=== PATIENT | female | born 1985 | race Caucasian/White ===

== ENCOUNTER → 2016-05-26 | Outpatient (CLI) | payer MEDICARE ==
[~2016-05-26] MED LIST: /CARB4TA OR; /DULO30CA OR; /LAMO10TA PO; /OLAN5ZYD OR; /ZOLP6ER OR; ABIL10TA OR; ABIL2TAB OR; ABIL5TAB OR; AMBI10TA OR; AMBI12.52 PO; AMBIEN OR; ATIV1TAB2 OR; BUSP10TA PO; CARB PO; CARB10TAXR OR; CARBAMAZEPINE 600 MG PO; CIPR500T89 PO; COLA50CA3 PO; CYMB60CA3 PO; DULOXETINE PO; HYDR-3363 PO; KLON1TAB OR; KLON1TAB PO; KLON2TAB PO; LATU40TA PO; LORA1TAB OR; NEUR300C OR; NEUR600T OR; NICO21DI4 TD; PERC7.5T12 PO; TEGR100C OR; TEGR200T OR; TEGR200T PO; TRAZ100T OR; TRAZ100T2 PO; TRAZ50TA2 PO; WELL75TA OR; ZYPR5TAB2 PO; [UNRECOGNIZED DRUG - CODE]; [UNRECOGNIZED DRUG - CODE] PO; [UNRECOGNIZED DRUG - OTHER] PO; rozerem PO
--- NOTE | 2016-05-26 18:17 | REP ---
Clinical: Shortness of breath. Technique: PA and lateral. Comparison: 11/13/2012. Findings: Calcified hilar lymph nodes and pulmonary granulomas are identified consistent with prior granulomatous disease. No obvious acute consolidation, effusion, or pneumothorax. Cardiac silhouette is normal. Skeletal structures intact. Impression: Prior granulomatous disease. No obvious acute cardiopulmonary process. Signed by Douglas Morales MD 05/26/2016 06:08 P
[2016-05-26 20:23] LABS: BASO % 0.5 % (0.0-1.0); EOS # 0.1 K/mm3 (0.0-0.50); EOS % 0.9 % (0.0-3.0); LARGE UNSTAINED CELL # 0.1 K/mm3 (0.0-0.4); LARGE UNSTAINED CELL % 2.2 % (0.0-4.0); LYMPH # 1.8 K/mm3 (1.5-4.5); LYMPH % 27.9 % (24.0-44.0); MEAN CORPUSCULAR HEMOGLOBIN 31.3 pg (27.0-33.0); MEAN CORPUSCULAR HGB CONC 32.4 g/dl (32.0-36.5); MEAN CORPUSCULAR VOLUME 96.5 fl (80.0-96.0); MONO # 0.3 K/mm3 (0.0-0.8); MONO % 4.4 % (0.0-5.0); NEUTROPHILS # 4.1 K/mm3 (1.8-7.7); NEUTROPHILS % 64.2 % (36.0-66.0); PLATELET COUNT, AUTOMATED 280 k/mm3 (150-450); RED CELL DISTRIBUTION WIDTH 11.6 % (11.5-14.5)
[2016-05-26 20:27] LABS: ALBUMIN 4.2 GM/DL (3.2-5.2); ALBUMIN/GLOBULIN RATIO 1.45 (1.00-1.93); ALKALINE PHOSPHATASE 74 U/L (45-117); ALT/SGPT 23 U/L (12-78); ANION GAP 7 MEQ/L (8-16); AST/SGOT 10 U/L (15-37); BILIRUBIN,TOTAL 0.3 MG/DL (0.2-1.0); BLOOD UREA NITROGEN 14 MG/DL (7-18); CALCIUM LEVEL 9.1 MG/DL (8.5-10.1); CARBON DIOXIDE LEVEL 29 MEQ/L (21-32); CHLORIDE LEVEL 104 MEQ/L (98-107); CREATININE FOR GFR 0.76 MG/DL (0.55-1.02); GLOMERULAR FILTRATION RATE > 60.0 (>60); POTASSIUM SERUM 4.4 MEQ/L (3.5-5.1); SODIUM LEVEL 140 MEQ/L (136-145); TOTAL PROTEIN 7.1 GM/DL (6.4-8.2)
[2016-05-26 20:52] LABS: ERYTHROCYTE SEDIMENTATION RATE 4 mm/hr (0-20)
[2016-05-27 08:33] LABS: GLUCOSE, FASTING 93 MG/DL (70-105); WHITE BLOOD COUNT 6.4 K/mm3 (4.0-10.0)
== END ==
LOC: M WUC 17:39
PROVIDERS: ATTEND Physician Assistant
DX: R06.02 Shortness of breath (principal); M25.50 Pain in unspecified joint

== ENCOUNTER → 2017-05-30 | Outpatient (REF) | payer MEDICARE ==
[2017-05-30 14:05] LABS: BASO % 0.4 % (0.0-1.0); EOS % 0.8 % (0.0-3.0); HEMATOCRIT 36.6 % (36.0-47.0); HEMOGLOBIN 11.8 g/dl (12.0-16.0); IMMATURE GRANULOCYTE % 0.2 % (0-0); LYMPH # 1.9 10^3/uL (1.5-4.5); LYMPH % 37.2 % (24.0-44.0); MEAN CORPUSCULAR HEMOGLOBIN 29.9 pg (27.0-33.0); MEAN CORPUSCULAR HGB CONC 32.2 g/dl (32.0-36.5); MEAN CORPUSCULAR VOLUME 92.7 fl (80.0-96.0); MONO # 0.3 10^3/uL (0.0-0.8); MONO % 6.7 % (0.0-5.0); NEUTROPHILS # 2.8 10^3/uL (1.8-7.7); NEUTROPHILS % 54.7 % (36.0-66.0); PLATELET COUNT, AUTOMATED 311 10^3/uL (150-450); RED BLOOD COUNT 3.95 10^6/uL (4.00-5.40); RED CELL DISTRIBUTION WIDTH 12.9 % (11.5-14.5); WHITE BLOOD COUNT 5.1 10^3/uL (4.0-10.0)
[2017-05-30 14:24] LABS: CARBAMAZEPINE (TEGRETOL) LEVEL 3.9 UG/ML (4.0-10.0)
== END ==
LOC: M LABDRAW1 11:52
DX: Z51.81 Encounter for therapeutic drug level monitoring (principal); Z79.899 Other long term (current) drug therapy
CPT/HCPCS: 80156

== ENCOUNTER → 2018-03-21 | Outpatient (REF) | payer MEDICARE ==
[2018-03-21 13:54] LABS: BASO % 0.5 % (0.0-1.0); EOS # 0.3 10^3/uL (0.0-0.50); EOS % 3.2 % (0.0-3.0); HEMATOCRIT 42.2 % (36.0-47.0); HEMOGLOBIN 13.2 g/dl (12.0-15.5); IMMATURE GRANULOCYTE % 0.3 % (0-3.0); LYMPH # 1.4 10^3/uL (1.5-4.5); LYMPH % 18.5 % (24.0-44.0); MEAN CORPUSCULAR HEMOGLOBIN 30.1 pg (27.0-33.0); MEAN CORPUSCULAR HGB CONC 31.3 g/dl (32.0-36.5); MEAN CORPUSCULAR VOLUME 96.3 fl (80.0-96.0); MONO # 0.5 10^3/uL (0.0-0.8); MONO % 6.6 % (0.0-5.0); NEUTROPHILS # 5.5 10^3/uL (1.8-7.7); NEUTROPHILS % 70.9 % (36.0-66.0); PLATELET COUNT, AUTOMATED 277 10^3/uL (150-450); RED BLOOD COUNT 4.38 10^6/uL (4.00-5.40); WHITE BLOOD COUNT 7.7 10^3/uL (4.0-10.0)
[2018-03-21 14:04] LABS: ALBUMIN 3.5 GM/DL (3.2-5.2); ALBUMIN/GLOBULIN RATIO 1.13 (1.00-1.93); ALKALINE PHOSPHATASE 124 U/L (45-117); ALT/SGPT 24 U/L (12-78); AST/SGOT 15 U/L (7-37); BILIRUBIN,DIRECT < 0.1 MG/DL (0.0-0.2); BILIRUBIN,TOTAL 0.2 MG/DL (0.2-1.0); CARBAMAZEPINE (TEGRETOL) LEVEL 3.6 UG/ML (4.0-10.0); TOTAL PROTEIN 6.6 GM/DL (6.4-8.2)
== END ==
LOC: M LABDRAW1 12:42
DX: Z51.81 Encounter for therapeutic drug level monitoring (principal); Z79.899 Other long term (current) drug therapy
CPT/HCPCS: 80156

== ENCOUNTER 2018-05-30 07:59 | Emergency (ER) | payer MEDICARE ==
[2018-05-30] MEDS ORDERED: ACETAMINOPHEN 325 MG TAB PO ONE (08:45)
[2018-05-30] MEDS ORDERED: NS 1,000 ML IV ONE (08:45)
[2018-05-30 09:46] LABS: HEMATOCRIT 45.2 % (36.0-47.0); MEAN CORPUSCULAR HEMOGLOBIN 31.3 pg (27.0-33.0); MEAN CORPUSCULAR HGB CONC 33.2 g/dl (32.0-36.5); MEAN CORPUSCULAR VOLUME 94.4 fl (80.0-96.0); PLATELET COUNT, AUTOMATED 317 10^3/uL (150-450); RED BLOOD COUNT 4.79 10^6/uL (4.00-5.40); WHITE BLOOD COUNT 8.3 10^3/uL (4.0-10.0)
[2018-05-30 09:47] VITALS: BP 125/96
[2018-05-30 10:08] LABS: AMPHETAMINES LEVEL URINE NEGATIVE (NEGATIVE); BARBITURATES URINE NEGATIVE (NEGATIVE); BENZODIAZEPINES URINE NEGATIVE (NEGATIVE); CANNABINOIDS URINE POSITIVE (NEGATIVE); COCAINE METABOLITE URINE POSITIVE (NEGATIVE); METHADONE URINE NEGATIVE (NEGATIVE); OPIATES URINE NEGATIVE (NEGATIVE); PHENCYCLIDINE URINE NEGATIVE (NEGATIVE)
[2018-05-30 10:13] LABS: HCG, SERUM QUALITATIVE NEGATIVE (NEGATIVE)
[2018-05-30 10:30] LABS: ACETAMINOPHEN LEVEL < 2.0 UG/ML (10.0-30.0); ALBUMIN 4.1 GM/DL (3.2-5.2); ALT/SGPT 43 U/L (12-78); BILIRUBIN,DIRECT < 0.1 MG/DL (0.0-0.2); BILIRUBIN,TOTAL 0.2 MG/DL (0.2-1.0); BLOOD UREA NITROGEN 7 MG/DL (7-18); CALCIUM LEVEL 8.6 MG/DL (8.5-10.1); CARBON DIOXIDE LEVEL 26 MEQ/L (21-32); CHLORIDE LEVEL 105 MEQ/L (98-107); CPK CREATINE PHOSPHOKINASE 1269 U/L (26-192); CREATININE FOR GFR 0.75 MG/DL (0.55-1.30); ETHYL ALCOHOL (ETHANOL) 0.252 % (0.000-0.010); GLOMERULAR FILTRATION RATE > 60.0 (>60); GLUCOSE, FASTING 106 MG/DL (70-100); POTASSIUM SERUM 3.6 MEQ/L (3.5-5.1); SALICYLATE LEVEL 1.8 MG/DL (5.0-30.0); SODIUM LEVEL 141 MEQ/L (136-145); TOTAL PROTEIN 7.3 GM/DL (6.4-8.2)
[2018-05-30] MEDS ORDERED: NICO21DI34 TD (17:10)
[2018-05-30] MEDS ORDERED: HYDR-3363 PO (17:10)
[2018-05-30] MEDS ORDERED: VITMTA PO (17:10)
[2018-05-30] MEDS ORDERED: TRAZ-163 PO (17:10)
[2018-05-30] MEDS ORDERED: DULO1CAP3 PO (17:10)
[2018-05-30] MEDS ORDERED: BUSP30TA PO (17:10)
[2018-05-30] MEDS ORDERED: DULO1CAP2 PO (17:10)
[2018-05-30] MEDS ORDERED: LAMO25TA4 PO (17:10)
[2018-05-30] MEDS ORDERED: CARB400T4 PO (17:10)
== END 2018-05-30 10:23 | disposition left against medical advice (07) ==
LOC: M ED 07:59
DX: F19.10 Other psychoactive substance abuse, uncomplicated (principal)
CPT/HCPCS: 80048; 80076; 80307; 82550; 84443; 84703; 85027; 96360; 99283; G0480

== ENCOUNTER 2018-05-30 13:33 | Inpatient (IN) | payer MEDICARE ==
[~2018-05-30] VITALS: Ht 170.2 cm; Wt 60.2 kg
[2018-05-30 14:42] LABS: AMPHETAMINES LEVEL URINE NEGATIVE (NEGATIVE); BARBITURATES URINE NEGATIVE (NEGATIVE); BENZODIAZEPINES URINE NEGATIVE (NEGATIVE); CANNABINOIDS URINE NEGATIVE (NEGATIVE); COCAINE METABOLITE URINE POSITIVE (NEGATIVE); METHADONE URINE NEGATIVE (NEGATIVE); OPIATES URINE NEGATIVE (NEGATIVE); PHENCYCLIDINE URINE NEGATIVE (NEGATIVE)
[2018-05-30] MEDS ORDERED: NS 1,000 ML IV ONE (15:00)
[2018-05-30 15:37] LABS: ACETAMINOPHEN LEVEL < 2.0 UG/ML (10.0-30.0); CPK CREATINE PHOSPHOKINASE 1052 U/L (26-192); ETHYL ALCOHOL (ETHANOL) 0.203 % (0.000-0.010); HEPATITIS B SURFACE ANTIGEN NEGATIVE (NEGATIVE); SALICYLATE LEVEL < 1.7 MG/DL (5.0-30.0)
[2018-05-30 15:59] LABS: HEPATITIS B CORE ANTIBODY IGM NEGATIVE (NEGATIVE); HEPATITIS C VIRUS ABY INDEX 0.1 INDEX (<0.8)
[2018-05-30 16:01] LABS: HIV 1&2 SCREEN CENTAUR NEGATIVE (NEGATIVE)
[2018-05-30 16:02] LABS: HEPATITIS A ANTIBODY IGM NEGATIVE (NEGATIVE)
[2018-05-30] MEDS ORDERED: NICOTINE 21MG/24HR 1 EA TRANSDERMAL TD ONE (17:00)
[2018-05-30] MEDS ORDERED: BUSP30TA PO (17:10)
[2018-05-30] MEDS ORDERED: CARB400T4 PO (17:10)
[2018-05-30] MEDS ORDERED: DULO1CAP3 PO (17:10)
[2018-05-30] MEDS ORDERED: LAMO25TA4 PO (17:10)
[2018-05-30] MEDS ORDERED: VITMTA PO (17:10)
[2018-05-30] MEDS ORDERED: DULO1CAP2 PO (17:10)
[2018-05-30] MEDS ORDERED: NICO21DI34 TD (17:10)
[2018-05-30] MEDS ORDERED: TRAZ-163 PO (17:10)
[2018-05-30] MEDS ORDERED: HYDR-3363 PO (17:10)
[2018-05-30] MEDS ORDERED: MAALOX 30 ML SUSP *UDC PO PRN (17:45)
[2018-05-30] MEDS: LORazepam 2 MG TAB PO PRN (18:42)
[2018-05-30 20:02] VITALS: BP 146/100
[2018-05-30 20:21] VITALS: BP 146/100
[2018-05-30] MEDS: OLANZapine ORAL DISINTEGRATING TAB 5MG PO PRN (20:40)
[2018-05-30] MEDS: traZODone 50 MG TAB PO PRN (20:40)
[2018-05-30] MEDS: THIAMINE 100 MG TAB PO SCH (20:40)
[2018-05-30 21:57] VITALS: BP 145/92
[2018-05-31 06:22] VITALS: BP 136/87
[2018-05-31] MEDS: MULTIVITAMINS/MINERALS THERAP 1 TAB PO SCH (08:54)
[2018-05-31] MEDS: THIAMINE 100 MG TAB PO SCH ×2 (08:54→20:20)
[2018-05-31] MEDS: NICOTINE 21MG/24HR 1 EA TRANSDERMAL TD SCH (08:54)
[2018-05-31] MEDS: FOLIC ACID 1 MG TAB PO SCH (08:54)
--- NOTE | 2018-05-31 09:26 | HPEPDOC ---
[facility] Medical History & Physical Date of Admission May 30, 2018 History and Physical PCP: None ATTENDING: Dr. Vladislav Cash HPI: 32 yo F admitted to [facility] for bipolar disorder, being medically examined today. No acute medical complaints today. Patient states she takes Lamictal and carbamazepine for mood. The patient noted she has a bruise on her left buttock. Denies any fevers, chills, weakness, fatigue, RANDALL, CP, SOB, cough, palpitations, abdominal pain, N/V/D or changes in bowel or bladder habits. PMHx: Anxiety Depression Bipolar disorder History of SI/SA, overdose. Substance use Insomnia History of seizure related to previous overdose 2014, patient denies any seizure activity since then. GERD PSHX: Right carpal tunnel release SOCHX: Resides in: [facility] Marital Status: Kids: None Employment: Disabled Tobacco use: One pack per day ETOH: States consuming alcohol prior to admission "all day", estimates over 10 drinks. States has been drinking daily recently. Illicit Drugs: History of cocaine, states has used other substances "you name it, I have used it". IV Drug Use: Approximately 4 years ago Tattoos done unprofessionally: Denies FAMHX: Mother: Alive, thyroid disease Father: Alive, well Siblings: One brother Alive, well Children: None Unexpected deaths due to medical reasons: None. ROS: As noted in HPI, otherwise 11pt ROS of systems reviewed and remarkable only for LMP 3 weeks ago per patient PE: GEN: 32 yo F, appears stated age. Appears disheveled, unkept. No acute distress. Alert and oriented x 3. HEENT: Normocephalic, atraumatic. Pupils are equal, round, and reactive to light. Extraocular movements are intact. No nystagmus appreciated. Sclera are nonicteric. Conjunctiva without injection. Nose midline. Nasal turbinates without bogginess. EACs both patent BL. TMs both visualized and vicente with good cone of light, no bulging or erythema. No facial asymmetry. Moist mucous membranes. Dentition fair. Pharynx pink and moist, no cobblestoning. Neck supple, trachea midline. No lymphadenopathy or thyromegaly appreciated. CHEST: Regular rate and rhythm, +S1, +S2 LUNGS: Clear to auscultation bilaterally. No wheezes, rales, or rhonchi. Breathing appears symmetric and easy. Patient is speaking in full sentences. No accessory muscle use. ABD: Round, soft, non-tender, non-distended. +Bowel sounds throughout. No rebound or guarding. No costovertebral angle tenderness. EXT: Pulses 2+ bilaterally dorsalis pedis and radial. No lower extremity edema appreciated. SKIN: Crowley, dry, warm. Capillary refill <2sec. No rashes. The patient is noted to have an erythematous area at the right buttock which appears to be related to abrasion, there is a small area of skin break approximately dime sized. No drainage. It appears to be healing. NEURO: Alert and oriented x 3. Cranial nerves III-XII are intact. No focal deficits appreciated. EKG: Pending A&P: 32 yo F admitted to [facility] for bipolar disorder 1. Psych. Plan per Psychiatry. Obtain baseline EKG to assure the safety of psychiatric medications as they can prolong the QT interval. 2. Nicotine dependence. Patch available. 3. Elevated CK. Trending downward. Recheck CK in a.m. Recheck BMP in a.m. 4. Follow up. No Primary Care Provider. Will attempt to establish PCP on discharge. 5. Substance use. Management per psychiatry. Continue with MVI, Thiamine, and F olic Acid supplementation. 6. Elevated AST. Possibly related to alcohol use. Recheck CMP in a.m. Check hepatitis profile. 7. History of IVDU. Patient declines HIV screening. 8. Staff member Jane GONZALEZ present throughout exam. Vital Signs Vital Signs Date Time Temp Pulse Resp B/P (MAP) Pulse Ox O2 Delivery O2 Flow Rate FiO2 05/31/18 06:22 73 136/87 05/31/18 06:22 97.6 14 05/30/18 20:02 99 Room Air Laboratory Data Labs 24H Laboratory Tests 2 05/30/18 14:15: Total Creatine Kinase 1052H, Salicylates Level < 1.7L, Urine Amphetamines Screen NEGATIVE, Urine Benzodiazepines Screen NEGATIVE, Urine Opiates Screen NEGATIVE, Urine Methadone Screen NEGATIVE, Acetaminophen Level < 2.0L, Urine Barbiturates Screen NEGATIVE, Urine Phencyclidine Screen NEGATIVE, Urine Cocaine Metabolite Screen POSITIVEH, Urine Cannabinoids Screen NEGATIVE, Ethyl Alcohol Level 0.203H, Hepatitis A IgM Antibody NEGATIVE, Hepatitis B Surface Antigen NEGATIVE, Hepatitis B Core IgM Antibody NEGATIVE, Hepatitis C Antibody Index 0.1, HIV Antigen/Antibody Combo Qual NEGATIVE Home Medications Scheduled Buspirone HCl (Buspirone HCl) 30 Mg Tab, 30 MG PO BID Carbamazepine (Carbamazepine ER) 400 Mg Tab, 400 MG PO QHS Duloxetine Hcl (Duloxetine HCl) 30 Mg Cap, 30 MG PO DAILY TO TOTAL 90MG Duloxetine Hcl (Duloxetine HCl) 60 Mg Cap, 60 MG PO DAILY TO TOTAL 90MG Lamotrigine (Lamotrigine) 25 Mg Tab, 75 MG PO BID Multivitamins *[facility] STOCKED* (Thera M Plus *[facility] STOCKED*) 1 Tab Tab, 1 TAB PO DAILY Nicotine (Nicotine Step 1) 21 Mg/24 Hr Dis, 21 MG TD DAILY Scheduled PRN Hydroxyzine HCl (Hydroxyzine HCl) 25 Mg Tab, 25 MG PO TID PRN for ANXIETY/AGITATION Trazodone HCl (Trazodone HCl) 100 Mg Tab, 150 MG PO QHS PRN for SLEEP Allergies Coded Allergies: No Known Drug Allergy (Verified Allergy, Unknown, 05/30/18) Roselia Calzada May 31, 2018 09:26
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
[2018-05-31] MEDS: lamoTRIgine 25 MG TAB PO SCH ×2 (11:51→20:20)
[2018-05-31] MEDS: busPIRone 5 MG TAB PO SCH ×3 (11:52→20:20)
[2018-05-31] MEDS: DULoxetine 30 MG CAP (CYMBALTA) PO SCH (11:52)
[2018-05-31] MEDS: carBAMazepine 100 MG *1/2* TAB PO SCH (13:18)
[2018-05-31] MEDS: OLANZapine ORAL DISINTEGRATING TAB 5MG PO PRN ×2 (13:19→20:21)
[2018-05-31 13:25] VITALS: BP 136/91
[2018-05-31 18:00] VITALS: BP 114/81
[2018-05-31 18:30] VITALS: BP 140/100
[2018-05-31] MEDS: LORazepam 2 MG TAB PO PRN (18:34)
[2018-05-31] MEDS: traZODone 50 MG TAB PO PRN (20:20)
--- NOTE | 2018-05-31 20:52 | ECGEPIP ---
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
[2018-06-01 06:24] VITALS: BP 118/66
[2018-06-01] MEDS: THIAMINE 100 MG TAB PO SCH ×2 (08:41→20:16)
[2018-06-01] MEDS: busPIRone 5 MG TAB PO SCH ×3 (08:41→20:16)
[2018-06-01] MEDS: FOLIC ACID 1 MG TAB PO SCH (08:41)
[2018-06-01] MEDS: carBAMazepine 100 MG *1/2* TAB PO SCH (08:41)
[2018-06-01] MEDS: DULoxetine 30 MG CAP (CYMBALTA) PO SCH (08:41)
[2018-06-01] MEDS: lamoTRIgine 25 MG TAB PO SCH ×2 (08:41→20:16)
[2018-06-01] MEDS: MULTIVITAMINS/MINERALS THERAP 1 TAB PO SCH (08:41)
[2018-06-01] MEDS: OLANZapine ORAL DISINTEGRATING TAB 5MG PO PRN ×3 (08:41→20:16)
[2018-06-01] MEDS: NICOTINE 21MG/24HR 1 EA TRANSDERMAL TD SCH (08:42)
[2018-06-01 08:54] LABS: ALT/SGPT 24 U/L (12-78); BILIRUBIN,TOTAL 0.3 MG/DL (0.2-1.0); BLOOD UREA NITROGEN 11 MG/DL (7-18); CALCIUM LEVEL 8.5 MG/DL (8.5-10.1); CARBON DIOXIDE LEVEL 24 MEQ/L (21-32); CHLORIDE LEVEL 107 MEQ/L (98-107); CPK CREATINE PHOSPHOKINASE 229 U/L (26-192); CREATININE FOR GFR 0.64 MG/DL (0.55-1.30); GLOMERULAR FILTRATION RATE > 60.0 (>60); GLUCOSE, FASTING 81 MG/DL (70-100); POTASSIUM SERUM 4.1 MEQ/L (3.5-5.1); SODIUM LEVEL 140 MEQ/L (136-145); TOTAL PROTEIN 5.4 GM/DL (6.4-8.2)
[2018-06-01 09:58] LABS: BILIRUBIN,DIRECT 0.1 MG/DL (0.0-0.2)
[2018-06-01 10:35] VITALS: BP 124/84
[2018-06-01 10:48] LABS: BASO % 0.4 % (0.0-1.0); EOS # 0.2 10^3/uL (0.0-0.50); EOS % 2.5 % (0.0-3.0); HEMATOCRIT 34.9 % (36.0-47.0); HEMOGLOBIN 12.1 g/dl (12.0-15.5); LYMPH # 1.6 10^3/uL (1.5-4.5); MEAN CORPUSCULAR HEMOGLOBIN 32.3 pg (27.0-33.0); MEAN CORPUSCULAR HGB CONC 34.7 g/dl (32.0-36.5); MEAN CORPUSCULAR VOLUME 93.1 fl (80.0-96.0); MONO # 0.6 10^3/uL (0.0-0.8); MONO % 8.7 % (0.0-5.0); NEUTROPHILS # 4.8 10^3/uL (1.8-7.7); NEUTROPHILS % 66.1 % (36.0-66.0); PLATELET COUNT, AUTOMATED 235 10^3/uL (150-450); RED BLOOD COUNT 3.75 10^6/uL (4.00-5.40); WHITE BLOOD COUNT 7.3 10^3/uL (4.0-10.0)
[2018-06-01] MEDS: ACETAMINOPHEN TAB 650MG DOSE (2X325MG) PO PRN (13:44)
[2018-06-01 13:49] VITALS: BP 139/95
[2018-06-01 18:00] VITALS: BP 131/79
[2018-06-01] MEDS: carBAMazepine 200 MG TAB PO SCH (20:16)
[2018-06-01] MEDS: traZODone 50 MG TAB PO PRN (20:36)
[2018-06-02 06:39] VITALS: BP 128/69
[2018-06-02 08:16] VITALS: BP 128/69
[2018-06-02] MEDS: lamoTRIgine 25 MG TAB PO SCH ×2 (08:34→20:17)
[2018-06-02] MEDS: FOLIC ACID 1 MG TAB PO SCH (08:34)
[2018-06-02] MEDS: DULoxetine 30 MG CAP (CYMBALTA) PO SCH (08:34)
[2018-06-02] MEDS: busPIRone 5 MG TAB PO SCH ×3 (08:34→20:17)
[2018-06-02] MEDS: NICOTINE 21MG/24HR 1 EA TRANSDERMAL TD SCH (08:34)
[2018-06-02] MEDS: MULTIVITAMINS/MINERALS THERAP 1 TAB PO SCH (08:34)
[2018-06-02] MEDS: THIAMINE 100 MG TAB PO SCH (08:34)
[2018-06-02] MEDS: OLANZapine ORAL DISINTEGRATING TAB 5MG PO PRN ×2 (08:35→18:39)
[2018-06-02] MEDS: carBAMazepine 200 MG TAB PO SCH ×2 (08:35→20:16)
[2018-06-02 10:43] VITALS: BP 142/97
[2018-06-02] MEDS: LORazepam 2 MG TAB PO PRN (10:46)
--- NOTE | 2018-06-02 11:47 | MHIPNPDOC ---
[facility] Progress Note Progress Note DATE OF SERVICE: 06/01/18 HISTORY: Chief Complaint I have been drinking and using coke, I'm not suicidal History of Present Illness HISTORY OF THE PRESENT ILLNESS: Patient is a 32 -year-old , female, who according to the ED report: "Pt was brought to ER on a 9.45 requested by pt's psychiatrist, Dr Mulligan, for c/o SI or recent attempt by OD that was reported by her mother. Pt denies that she attempted to kill herself with Atarax. Also denies any current SI or HI. She states "I drank a lot. I drink every day." She admits to stopping her medications a few months ago in order to be able to consume alcohol. Pt also admits to using cocaine and marijuana. She is talking about possibly going back into a rehab or attending [facility]'s IOP". VITAL SIGNS: See below. NEW TEST RESULTS: See below CURRENT MEDICATIONS: See below. MENTAL STATUS EXAMINATION: General Appearance: unkempt, disheveled, appears stated age (looks older), hospital scrubs/clothing, looks swollen, her eyelids are swollen Build: average Demeanor: average, cooperative Eye Contact: avoidant Activity: slowed Behavior: cooperative Speech: clear, spontaneous, slow, low in volume Mood: depressed, anxious Affect: constricted, appropriate, congruent, anxious Thought Process: logical/linear Thought Content (Delusions): denies thought delusions Thought Content (Other): none reported Thought Content (Aggressive): none reported Perception (Hallucinations): Denies Av hallucinations Perception (Other): Denies Cognition (Impairment of): none reported Cognition(Intelligence Est.): average Oriented: x 3 Insight: poor Judgment: Poor Psychosis: Denies Diagnoses 1. Bipolar 2 disorder 2. Alcohol use disorder 3. Cocaine use disorder 4. H/o of polysubstance abuse 5. R/O substance induced mood disorder ASSESSMENT Patient reported today that her anxiety levels are very high a 7- 8/10, she says she has always been anxious. she doesn't report high levels of depression, a 3-4/10. she says she felt almost manic during the summer but at the same time, she says that episode was not as intense and disabling as the episode she had 3-4 years ago. At the same time she says that she stopped taking her medications so that she would be able to drink alcohol again. she has been hospitalized many times in Rehab treatment programs and she had been clean for a long time. Dr. Mulligan sees her at the outpatient clinic but he says he has not seen her except for a 10 minute visit recently. He says she usually requests to be discharged before she is ready to leave, and he requests not to let her go, he also requests to make an appointment [facility] or if she would agree to an inpatient Rehab. Patient reports he likes how Zyprexa Zydis makes her feel, it helps her to sleep very well. I explained that unfortunately the Insurance companies are not willing to pay for it, but she might be interested in taking plain Zypresa, however she is not keen on the weight weight gain Zyprexa causes. I will continue on her previous medications but Dr. Mulligan says that Cymbalta might have activated her, so, on Monday I will ask her if she would consider to reduce the dose, while I continue to increase the doses of the other medications. MANAGEMENT PLAN: As above TIME SPENT: 15 minutes. Vital Signs Vital Signs Date Time Temp Pulse Resp B/P (MAP) Pulse Ox O2 Delivery O2 Flow Rate FiO2 06/02/18 10:43 119 142/97 06/02/18 06:39 99.0 14 06/01/18 06:24 Room Air 05/30/18 20:02 99 Current Medications Current Medications Acetaminophen (Tylenol Tab) 650 mg Q6HP PRN PO HEADACHE or DISCOMFORT Last administered on 06/01/18at 13:44; Start 05/30/18 at 17:45 Al Hydrox/Mg Hydrox/Simethicone (Mylanta) 30 ml Q4HP PRN PO HEARTBURN/INDIGESTION; Start 05/30/18 at 17:45 Buspirone HCl (Buspar) 15 mg TID PO Last administered on 06/02/18at 08:34; S tart 05/31/18 at 09:00 Carbamazepine (TEGretol) 100 mg DAILY PO Last administered on 06/01/18at 08:41; Start 05/31/18 at 09:00; Stop 06/01/18 at 09:31; Status DC Carbamazepine (TEGretol) 200 mg BID PO Last administered on 06/02/18 08:35; Start 06/01/18 at 21:00 Duloxetine HCl (Cymbalta) 30 mg QAM PO Last administered on 06/01/18 08:41; Start 05/31/18 at 09:00; Stop 06/01/18 at 09:31; Status DC Duloxetine HCl (Cymbalta) 60 mg QAM PO Last administered on 06/02/18 08:34; Start 06/02/18 at 09:00 Folic Acid (Folic Acid) 1 mg DAILY PO Last administered on 06/02/18 08:34; Start 05/31/18 at 09:00 Home Med (Med Rec Complete!) ASDIRECTED XX ; Start 05/30/18 at 17:15; Stop 05/30/18 at 17:15; Status DC Lamotrigine (LaMICtal) 25 mg BID PO Last administered on 06/01/18 08:41; Start 05/31/18 at 09:00; Stop 06/01/18 at 09:31; Status DC Lamotrigine (LaMICtal) 50 mg BID PO Last administered on 06/02/18 08:34; Start 06/01/18 at 21:00 Lorazepam (Ativan) 2 mg ASDIRECTED PRN PO SEE PROTOCOL Last administered on at 10:46; Start 05/30/18 at 17:45 Magnesium Hydroxide (Milk Of Magnesia) 30 ml DAILYPRN PRN PO CONSTIPATION; Start 05/30/18 at 17:45 Multivitamins (Theragram-M) 1 tab DAILY PO Last administered on 06/02/18 08:34; Start 05/31/18 at 09:00 Nicotine (Nicoderm Cq 21mg) 1 patch DAILY TD Last administered on 06/02/18 08:34; Start 05/31/18 at 09:00 Olanzapine (ZyPREXA ZYDIS) 5 mg Q4HP PRN PO ANXIETY/AGITATION Last administered on 06/02/18 08:35; Start 05/30/18 at 17:45 Thiamine HCl (Thiamine HCl) 100 mg BID PO Last administered on 06/02/18 08:34; Start 05/30/18 at 18:00; Stop 06/02/18 at 09:01; Status DC Trazodone HCl (Desyrel) 50 mg QHSP PRN PO INSOMNIA Last administered on 06/01/18at 20:36; Start 05/30/18 at 17:45 Allergies Coded Allergies: No Known Drug Allergy (Verified Allergy, Unknown, 05/30/18) RADHA NIÑO MD Jun 02, 2018 11:27
[2018-06-02 18:00] VITALS: BP 127/82
[2018-06-02] MEDS: traZODone 50 MG TAB PO PRN (20:17)
[2018-06-02 20:25] VITALS: BP 131/88
[2018-06-03 06:49] VITALS: BP_SYST 111; BP_SYST 120; BP_DIAS 66; BP_DIAS 72
[2018-06-03 07:39] VITALS: BP 120/66
[2018-06-03] MEDS: lamoTRIgine 25 MG TAB PO SCH ×2 (08:31→20:38)
[2018-06-03] MEDS: carBAMazepine 200 MG TAB PO SCH ×2 (08:31→20:38)
[2018-06-03] MEDS: NICOTINE 21MG/24HR 1 EA TRANSDERMAL TD SCH (08:32)
[2018-06-03] MEDS: FOLIC ACID 1 MG TAB PO SCH (08:32)
[2018-06-03] MEDS: MULTIVITAMINS/MINERALS THERAP 1 TAB PO SCH (08:32)
[2018-06-03] MEDS: busPIRone 5 MG TAB PO SCH ×3 (08:32→20:38)
[2018-06-03] MEDS: DULoxetine 30 MG CAP (CYMBALTA) PO SCH (08:32)
[2018-06-03] MEDS: OLANZapine ORAL DISINTEGRATING TAB 5MG PO PRN ×3 (08:32→18:49)
--- NOTE | 2018-06-03 14:05 | IPN ---
DATE OF SERVICE: 06/02/2018 The patient states, "My mood has improved a little". She really feels that starting her medications again is really helping. States "I feel more hopeful today and not sleeping all day as I had been". MENTAL STATUS EXAMINATION: Alert and oriented times three. Eye contact is fair. Psychomotor activity is normal. No formal thought disorder. Mood is better. Affect is full range and appropriate. She is not psychotic. Denying suicidal and homicidal ideations. Concentration fair. Memory intact. Insight and judgment fair. DIAGNOSIS: Bipolar disorder type 1. TREATMENT PLAN: At this point, we will continue to observe for continued elevation and stabilization of her mood and continued resolution of suicidal ideation. We will continue to titrate her medications as indicated.
[2018-06-03 17:36] VITALS: BP 116/69
[2018-06-03 18:03] VITALS: BP 116/69
[2018-06-03] MEDS: MOM 30ML SUSPENSION UDC PO PRN (18:48)
[2018-06-03] MEDS: traZODone 50 MG TAB PO PRN (20:38)
[2018-06-04 06:35] VITALS: BP 97/54
[2018-06-04] MEDS: OLANZapine ORAL DISINTEGRATING TAB 5MG PO PRN ×3 (08:49→19:42)
[2018-06-04] MEDS: lamoTRIgine 25 MG TAB PO SCH ×2 (08:49→19:42)
[2018-06-04] MEDS: carBAMazepine 200 MG TAB PO SCH ×2 (08:49→19:41)
[2018-06-04] MEDS: MULTIVITAMINS/MINERALS THERAP 1 TAB PO SCH (08:51)
[2018-06-04] MEDS: ACETAMINOPHEN TAB 650MG DOSE (2X325MG) PO PRN ×2 (08:51→19:41)
[2018-06-04] MEDS: busPIRone 5 MG TAB PO SCH ×3 (08:51→19:41)
[2018-06-04] MEDS: DULoxetine 30 MG CAP (CYMBALTA) PO SCH (08:51)
[2018-06-04] MEDS: FOLIC ACID 1 MG TAB PO SCH (08:51)
[2018-06-04] MEDS: NICOTINE 21MG/24HR 1 EA TRANSDERMAL TD SCH (08:52)
--- NOTE | 2018-06-04 11:35 | MHIPNPDOC ---
[facility] Progress Note Progress Note DATE OF SERVICE: 06/04/18 HISTORY: Patient is a 32 -year-old , female, who according to the ED report: "Pt was brought to ER on a 9.45 requested by pt's psychiatrist, Dr Mulligan, for c/o SI or recent attempt by OD that was reported by her mother. Pt denies that she attempted to kill herself with Atarax. Also denies any current SI or HI. She states "I drank a lot. I drink every day." She admits to stopping her medications a few months ago in order to be able to consume alcohol. Pt also admits to using cocaine and marijuana. She is talking about possibly going back into a rehab or attending [facility]'s IOP". VITAL SIGNS: See below. NEW TEST RESULTS: See below. CURRENT MEDICATIONS: See below. MENTAL STATUS EXAMINATION: Patient is a 32-year old female, who is appears unkempt, wearing hospital cloth ing Speech: Is of normal tone, rate and volume. Clear, spontaneous. Language skills are intact Thought processes including: logical, linear Thought content: reports anxiety, denies depressive, suicidal or homicidal thoughts. Description of abnormal or psychotic thoughts: denies AV hallucinations. Judgment: poor Insight: poor Orientation: oriented to person, place and time Recent and remote memory: intact Attention span and concentration: intact, reports difficulty concentrating Language: intact Fund of knowledge: intact Mood: Constricted, anxious Affect: Mood congruent DIAGNOSES: 1. Bipolar 2 disorder 2. Alcohol use disorder 3. Cocaine use disorder 4. H/O of polysubstance abuse 5. R/O substance induced mood disorder ASSESSMENT: Patient was interviewed today in her room. She reports sleeping well last evening and believes she is doing well today. She denies any depressive symptoms at this time but does subscribe to some mild anxiety. She continued to minimizes the circumstances leading to her admission. Ms. Rutherford reports feeling better since restarting her medications. She denies alcohol cravings or the symptoms of alcohol withdrawal. She is looking forward to discharge as soon as possible. She contracts for safety while on the unit. Patient was encouraged to participate in groups and to be visible in the milieu. MANAGEMENT PLAN: Patient's Lamictal was increase from 50 mg to 75 mg BID. Additionally, her Tegretol was also increased to 400 mg BID. TIME SPENT: 15 minutes. Vital Signs Vital Signs Date Time Temp Pulse Resp B/P (MAP) Pulse Ox O2 Delivery O2 Flow Rate FiO2 06/04/18 06:35 98.9 65 12 97/54 (68) 06/01/18 06:24 Room Air 05/30/18 20:02 99 Current Medications Current Medications Acetaminophen (Tylenol Tab) 650 mg Q6HP PRN PO HEADACHE or DISCOMFORT Last administered on 06/04/18 08:51; Start 05/30/18 at 17:45 Al Hydrox/Mg Hydrox/Simethicone (Mylanta) 30 ml Q4HP PRN PO HEARTBURN/INDIGESTION; Start 05/30/18 at 17:45 Buspirone HCl (Buspar) 15 mg TID PO Last administered on 06/04/18 08:51; Start 05/31/18 at 09:00 Carbamazepine (TEGretol) 100 mg DAILY PO Last administered on 06/01/18at 08:41; Start 05/31/18 at 09:00; Stop 06/01/18 at 09:31; Status DC Carbamazepine (TEGretol) 200 mg BID PO Last administered on 06/04/18at 08:49; Start 06/01/18 at 21:00; Stop 06/04/18 at 10:52; Status DC Carbamazepine (TEGretol) 400 mg BID PO ; Start 06/04/18 at 21:00 Duloxetine HCl (Cymbalta) 30 mg QAM PO Last administered on 06/01/18at 08:41; Start 05/31/18 at 09:00; Stop 06/01/18 at 09:31; Status DC Duloxetine HCl (Cymbalta) 60 mg QAM PO Last administered on 06/04/18 08:51; Start 06/02/18 at 09:00 Folic Acid (Folic Acid) 1 mg DAILY PO Last administered on 06/04/18 08:51; Start 05/31/18 at 09:00 Home Med (Med Rec Complete!) ASDIRECTED XX ; Start 05/30/18 at 17:15; Stop 05/30/18 at 17:15; Status DC Lamotrigine (LaMICtal) 25 mg BID PO Last administered on 06/01/18 08:41; Start 05/31/18 at 09:00; Stop 06/01/18 at 09:31; Status DC Lamotrigine (LaMICtal) 50 mg BID PO Last administered on 06/04/18at 08:49; Start 06/01/18 at 21:00; Stop 06/04/18 at 10:51; Status DC Lamotrigine (LaMICtal) 75 mg BID PO ; Start 06/04/18 at 21:00 Lorazepam (Ativan) 2 mg ASDIRECTED PRN PO SEE PROTOCOL Last administered on 06/02/18at 10:46; Start 05/30/18 at 17:45; Stop 06/03/18 at 17:42; Status DC Magnesium Hydroxide (Milk Of Magnesia) 30 ml DAILYPRN PRN PO CONSTIPATION Last administered on 06/03/18 18:48; Start 05/30/18 at 17:45 Multivitamins (Theragram-M) 1 tab DAILY PO Last administered on 06/04/18 08:51; Start 05/31/18 at 09:00 Nicotine (Nicoderm Cq 21mg) 1 patch DAILY TD Last administered on 06/04/18 08:52; Start 05/31/18 at 09:00 Olanzapine (ZyPREXA ZYDIS) 5 mg Q4HP PRN PO ANXIETY/AGITATION Last administered on 06/04/18 08:49; Start 05/30/18 at 17:45 Thiamine HCl (Thiamine HCl) 100 mg BID PO Last administered on 06/02/18at 08:34; Start 05/30/18 at 18:00; Stop 06/02/18 at 09:01; Status DC Trazodone HCl (Desyrel) 50 mg QHSP PRN PO INSOMNIA Last administered on 9at 20:38; Start 05/30/18 at 17:45 Allergies Coded Allergies: No Known Drug Allergy (Verified Allergy, Unknown, 05/30/18) GME ATTESTATION GME ATTESTATION My faculty preceptor for this patient encounter was physically present during the encounter and was fully available. All aspects of the patient interview, examination, medical decision making process, and medical care plan development were reviewed and approved by the faculty preceptor. The faculty preceptor is aware and concurs with the plan as stated in the body of this note and will attest to such by his/her cosignature. TAWANA CLEMENTS DO Jun 04, 2018 11:35
[2018-06-04 18:00] VITALS: BP 133/75
[2018-06-04] MEDS: traZODone 50 MG TAB PO PRN (19:42)
--- NOTE | 2018-06-04 21:16 | IPN ---
DATE: 06/03/2018 The patient today states that she is feeling better. She says she is not suicidal. She says that she slept good and has no complaints. MENTAL STATUS EXAM: She is alert and oriented times three. Eye contact is fair. Psychomotor activity is normal. There is no formal thought disorder noted. Mood is "better." Affect full range and appropriate. She is not psychotic, suicidal, or homicidal. Concentration is fair. Memory intact. Insight and judgment is fair. DIAGNOSIS: Bipolar disorder type 1, depressed. TREATMENT PLAN: At this point, will continue to monitor the patient for continued resolution of suicidal ideations and continued elevation and stabilization of her mood.
[2018-06-05 07:00] VITALS: BP 116/67
[2018-06-05] MEDS: MULTIVITAMINS/MINERALS THERAP 1 TAB PO SCH (08:28)
[2018-06-05] MEDS: carBAMazepine 200 MG TAB PO SCH (08:28)
[2018-06-05] MEDS: lamoTRIgine 25 MG TAB PO SCH (08:28)
[2018-06-05] MEDS: NICOTINE 21MG/24HR 1 EA TRANSDERMAL TD SCH (08:28)
[2018-06-05] MEDS: DULoxetine 30 MG CAP (CYMBALTA) PO SCH (08:29)
[2018-06-05] MEDS: FOLIC ACID 1 MG TAB PO SCH (08:29)
[2018-06-05] MEDS: busPIRone 5 MG TAB PO SCH (08:29)
[2018-06-05] MEDS: MOM 30ML SUSPENSION UDC PO PRN (09:54)
[2018-06-05] MEDS ORDERED: OLANZapine 5 MG TAB PO PRN (10:00)
[2018-06-05] MEDS ORDERED: TRAZO50TA PO (10:10)
[2018-06-05] MEDS ORDERED: CARB20TA PO (10:10)
[2018-06-05] MEDS ORDERED: DULO30CA PO (10:10)
[2018-06-05] MEDS ORDERED: BUSP15TA47 PO (10:10)
[2018-06-05] MEDS ORDERED: NICO21PAT TD (10:10)
[2018-06-05] MEDS ORDERED: VITMTA PO (10:10)
[2018-06-05] MEDS ORDERED: LAMI25TA PO (10:10)
[2018-06-05] MEDS ORDERED: FOLI1TAB11 PO (10:10)
[2018-06-05] MEDS ORDERED: OLAN5TAB PO (10:11)
--- NOTE | 2018-06-05 20:36 | MHDSPDOC ---
[facility] Discharge Summary Discharge Summary DATE OF ADMISSION: May 30, 2018 at 17:37 DATE OF DISCHARGE: Jun 05, 2018 at 11:43 DISCHARGE DIAGNOSES: 1. Bipolar 2 disorder 2. Alcohol use disorder 3. Cocaine use disorder 4. H/O of polysubstance abuse 5. R/O substance induced mood disorder 6. [place] REASON FOR ADMISSION: Chief Complaint I have been drinking and using coke, I'm not suicidal History of Present Illness HISTORY OF THE PRESENT ILLNESS: Patient is a 32 -year-old , female, who according to the ED report: "Pt was brought to ER on a 9.45 requested by pt's psychiatrist, Dr Mulligan, for c/o SI or recent attempt by OD that was reported by her mother. Pt denies that she attempted to kill herself with Atarax. Also denies any current SI or HI. She states "I drank a lot. I drink every day." She admits to stopping her medications a few months ago in order to be able to consume alcohol. Pt also admits to using cocaine and marijuana. She is talking about possibly going back into a rehab or attending [facility]'s IOP" CONSULTANTS INVOLVED: None TREATMENT AND PROGRESS ON THE UNIT : Patient was cooperative and pleasant. On initial evaluation she looked very depressed, very tired, her eyelids were swollen, her affect was constricted/depressed/anxious. She reported, 24 hours later that she was more anxious than depressed and mentioned that she had stopped taking her medications three months ago because she wanted to drink alcohol. She has h/o of inpatient rehab treatment and she had been clean for some years now. Her medications were titrated accordingly because she had not taken them in three months, this was done slowly. She had a good response to medications and denied medications side effects. She was not aggressive or violent. She didn't have medication seeking behavior. HOSPITAL COURSE: As above DISCHARGE ASSESSMENT: She was not suicidal, not homicidal and not psychotic MENTAL STATUS EXAMINATION ON DISCHARGE: Patient is a 32-year old female, who is dressed in personal clothes, with good ye contact Speech: Is of normal tone, rate and volume. Clear, spontaneous. Language skills are intact Thought processes including: logical, linear Thought content: reports anxiety, denies depressive, suicidal or homicidal thoughts. Description of abnormal or psychotic thoughts: denies AV hallucinations. Judgment: improving Insight: improving Orientation: oriented to person, place and time Recent and remote memory: intact Attention span and concentration: intact, reports difficulty concentrating Language: intact Fund of knowledge: intact Mood: Constricted, anxious Affect: Mood congruent MEDICATIONS ON DISCHARGE: Scheduled Buspirone HCl (Buspirone HCl) 15 Mg Tab, 15 MG PO TID for ANXIETY for 7 Days, #21 Carbamazepine (TEGretol) 200 Mg Tab, 400 MG PO BID for mood, #28 Duloxetine Hcl (Cymbalta) 30 Mg Cap, 60 MG PO QAM for depression, #14 Folic Acid (Folic Acid) 1 Mg Tab, 1 MG PO DAILY for alcohol withdrawals, #7 Lamotrigine (Lamictal) 25 Mg Tab, 75 MG PO BID for mood, #42 Multivitamins *[facility] STOCKED* (Thera M Plus *[facility] STOCKED*) 1 Tab Tab, 1 TAB PO DAILY, (Reported) Multivitamins *[facility] STOCKED* (Thera M Plus *[facility] STOCKED*) 1 Tab Tab, 1 TAB PO DAILY for alcohol withdrawals, #7 Nicotine (Nicotine Step 1) 21 Mg/24 Hr Dis, 21 MG TD DAILY, (Reported) Nicotine (Nicotine Transdermal Syst) 21 Mg/24 Hr Dis, 1 PATCH TD DAILY for nicotine withdrawals, #7 Scheduled PRN Hydroxyzine HCl (Hydroxyzine HCl) 25 Mg Tab, 25 MG PO TID PRN for ANXIETY/AGITATION, (Reported) Olanzapine (Olanzapine) 5 Mg Tab, 5 MG PO TID PRN for MOOD, #21 Trazodone HCl (Trazodone HCl) 50 Mg Tab, 50 MG PO QHSP PRN for INSOMNIA, #7 PLAN/FOLLOWUP ARRANGEMENTS: Follow Up Care Education Label * Mental Health Appt 1 * Mental [facility] * Established With This Provider Yes * Therapist SAMUEL LUU * Date Jun 08, 2018 * Time 11:00 * Follow Up Care Education Label * Chemical Dependency Appt1 * Chemical Dependency [facility] * Established With This Provider No * Therapist Lauren * Date Jun 06, 2018 * Time 13:30 * Address of Clinic or Practice [address] [place] [address] * * Additional information Your appointment is at 2 but they would like you there 1/2 hour early for paperwork. Follow Up Care Education Label * Mental Health Appt 2 * [facility] * Established With This Provider Yes * Therapist DR. MULLIGAN * Date Jun 12, 2018 * Time 09:00 * Follow Up Care Education Label * Mental Health Appt 3 * Established With This Provider Yes * Therapist MICHAEL MONTAGUE * Date Jun 19, 2018 * Time 11:00 * Follow Up Care Education Label * Medical * Medical Follow Up [facility] * Established With This Provider No * Therapist Jacqueline * Date Jun 11, 2018 * Time 14:00 * The amount of time spent in the coordination of care for this patient was approximately 30 minutes. Vital Signs/I&Os Vital Signs Date Time Temp Pulse Resp B/P (MAP) Pulse Ox O2 Delivery O2 Flow Rate FiO2 06/05/18 07:00 99.3 71 14 116/67 (83) 06/01/18 06:24 Room Air 05/30/18 20:02 99 Medications Scheduled Buspirone HCl (Buspirone HCl) 15 Mg Tab, 15 MG PO TID for ANXIETY for 7 Days, #21 Carbamazepine (TEGretol) 200 Mg Tab, 400 MG PO BID for mood, #28 Duloxetine Hcl (Cymbalta) 30 Mg Cap, 60 MG PO QAM for depression, #14 Folic Acid (Folic Acid) 1 Mg Tab, 1 MG PO DAILY for alcohol withdrawals, #7 Lamotrigine (Lamictal) 25 Mg Tab, 75 MG PO BID for mood, #42 Multivitamins *[facility] STOCKED* (Thera M Plus *[facility]C STOCKED*) 1 Tab Tab, 1 TAB PO DAILY, (Reported) Multivitamins *[facility] STOCKED* (Thera M Plus *[facility] STOCKED*) 1 Tab Tab, 1 TAB PO DAILY for alcohol withdrawals, #7 Nicotine (Nicotine Step 1) 21 Mg/24 Hr Dis, 21 MG TD DAILY, (Reported) Nicotine (Nicotine Transdermal Syst) 21 Mg/24 Hr Dis, 1 PATCH TD DAILY for nicotine withdrawals, #7 Scheduled PRN Hydroxyzine HCl (Hydroxyzine HCl) 25 Mg Tab, 25 MG PO TID PRN for ANXIETY/AGITATION, (Reported) Olanzapine (Olanzapine) 5 Mg Tab, 5 MG PO TID PRN for MOOD, #21 Trazodone HCl (Trazodone HCl) 50 Mg Tab, 50 MG PO QHSP PRN for INSOMNIA, #7 Allergies Coded Allergies: No Known Drug Allergy (Verified Allergy, Unknown, 05/30/18) RADHA NIÑO MD Jun 05, 2018 20:29
== END 2018-06-05 11:43 | disposition home or self-care (01) | DRG 885 ==
LOC: M ED 13:33 → M ED INP 17:37 → M PSY 18:56
PROVIDERS: ADMIT Psychiatry & Neurology Psychiatry; ATTEND Psychiatry & Neurology Psychiatry
DX: F31.81 Bipolar II disorder (principal); F10.10 Alcohol abuse, uncomplicated; F14.90 Cocaine use, unspecified, uncomplicated; F41.1 Generalized anxiety disorder; F19.94 Other psychoactive substance use, unspecified with psychoactive substance-induced mood disorder; Z79.899 Other long term (current) drug therapy; K21.9 Gastro-esophageal reflux disease without esophagitis; G47.00 Insomnia, unspecified; F17.200 Nicotine dependence, unspecified, uncomplicated

== ENCOUNTER → 2018-06-06 | Outpatient (CLI) | payer MEDICARE ==
[~2018-06-06] MED LIST changes: +BUSP15TA47 PO; +BUSP30TA PO; +CARB20TA PO; +CARB400T4 PO; +DULO1CAP2 PO; +DULO1CAP3 PO; +DULO30CA PO; +FOLI1TAB11 PO; +LAMI25TA PO; +LAMO25TA4 PO; +NICO21DI34 TD; +NICO21PAT TD; +OLAN5TAB PO; +TRAZ-163 PO; +TRAZO50TA PO; +VITMTA PO
== END ==
LOC: M OUTALCOH 13:48
PROVIDERS: ATTEND Psychiatry & Neurology Psychiatry
DX: F10.20 Alcohol dependence, uncomplicated (principal)

== ENCOUNTER 2018-06-28 09:59 | Outpatient (RCR) | payer MEDICARE | END 2018-07-12 | LOC: M OUTALCOH 09:59 | PROVIDERS: ATTEND Psychiatry & Neurology Psychiatry | DX: F10.20 Alcohol dependence, uncomplicated (principal); F14.20 Cocaine dependence, uncomplicated ==

== ENCOUNTER → 2018-10-09 | Outpatient (REF) | payer MEDICARE ==
[~2018-10-09] MED LIST changes: -/CARB4TA OR; -/DULO30CA OR; -/LAMO10TA PO; -/OLAN5ZYD OR; -CARB PO; -CARB10TAXR OR; +CARB300C6 PO; +CYMB1CAP5 OR; -DULO30CA PO; +DULO30CA9 PO; +LAMI1TAB7 PO; +LAMO25CH PO; +TEGR100T3 OR; +TEGR100T3 PO; +TEGR1TAB2 OR; +TRAZ1TAB10 PO; -TRAZO50TA PO; +WELLTAB38 PO; +ZYPR1TAB3 OR; -[UNRECOGNIZED DRUG - CODE] PO; -[UNRECOGNIZED DRUG - OTHER] PO
== END ==
LOC: M LABDRAW1 15:50
PROVIDERS: ATTEND Psychiatry & Neurology Psychiatry
DX: Z51.81 Encounter for therapeutic drug level monitoring (principal)
CPT/HCPCS: 36415; 80156; G0463

== ENCOUNTER 2018-10-29 08:19 | Day surgery (SDC) | payer MEDICARE ==
[~2018-10-29] VITALS: Ht 170.2 cm; Wt 58.5 kg
[~2018-10-29 08:19] MED LIST changes: +NS 1,000 ML IV ONE
[2018-10-29] MEDS ORDERED: LIDOCAINE 2% INJ 100 MG/5 ML SDV (FOR ANES.) As Ordered ONE (08:57)
[2018-10-29] MEDS ORDERED: PROPOFOL 200 MG/20 ML VIAL As Ordered ONE ×3 (08:57→09:54)
--- NOTE | 2018-10-29 10:12 | ROOR ---
Patient Name: Marilyn Rutherford Procedure Date: 10/29/2018 9:43 AM Date of : 1985 Age: 33 Room: [facility] Gender: Female Note Status: Finalized Procedure: Total Colonoscopy to Cecum + ileoscopy + Bx Indications: Clinically significant diarrhea of unexplained origin, Change in bowel habits Providers: Surendra Good MD Referring MD: 1. No Referring Physician 1. No Referring Physician, Admin. Requesting Provider: Medicines: Monitored Anesthesia Care Complications: No immediate complications. Procedure: Pre-Anesthesia Assessment: - The heart rate, respiratory rate, oxygen saturations, blood pressure, adequacy of pulmonary ventilation, and response to care were monitored throughout the procedure. The Colonoscope was introduced through the anus and advanced to the terminal ileum, with identification of the appendiceal orifice and IC valve. The colonoscopy was performed without difficulty. The patient tolerated the procedure well. The quality of the bowel preparation was excellent. Findings: The perianal and digital rectal examinations were normal. Non-bleeding internal hemorrhoids were found during retroflexion. The hemorrhoids were small and Grade I (internal hemorrhoids that do not prolapse). A small polyp was found in the cecum. The polyp was sessile. The polyp was removed with a cold biopsy forceps. Resection and retrieval were complete. The terminal ileum appeared normal. Biopsies for histology were taken with a cold forceps from the cecum, ascending colon, transverse colon and descending colon for evaluation of microscopic colitis. The exam was otherwise without abnormality. Impression: - Non-bleeding internal hemorrhoids. - One small polyp in the cecum, removed with a cold biopsy forceps. Resected and retrieved. - The examined portion of the ileum was normal. - The examination was otherwise normal. - Biopsies were taken with a cold forceps from the cecum, ascending colon, transverse colon and descending colon for evaluation of microscopic colitis. - The exam was otherwise normal to the cecum. Recommendation: - Patient has a contact number available for emergencies. The signs and symptoms of potential delayed complications were discussed with the patient. Return to normal activities tomorrow. Written discharge instructions were provided to the patient. - High fiber diet. - Discharge patient to home. - Continue present medications. - Await pathology results. - Telephone GI clinic for pathology results in 1 week. - Refer to a colo-rectal surgeon as previously scheduled. - The findings and recommendations were discussed with the patient's family. Surendra Good MD Surendra Good MD 10/29/2018 10:11:23 AM Electronically signed by Surendra Good MD Number of Addenda: 0 Note Initiated On: 10/29/2018 9:43 AM Estimated Blood Loss: Estimated blood loss: none.
[2018-10-29 10:40] VITALS: BP 112/76
== END 2018-10-29 10:43 | disposition home or self-care (01) ==
LOC: M OPP 08:19
PROVIDERS: ATTEND Internal Medicine Gastroenterology
DX: K64.0 First degree hemorrhoids (principal); D12.0 Benign neoplasm of cecum; R19.7 Diarrhea, unspecified; R19.4 Change in bowel habit; Z87.891 Personal history of nicotine dependence

== ENCOUNTER → 2018-11-05 | Outpatient (CLI) | payer MEDICARE ==
[~2018-11-05] MED LIST changes: +E-Z-GAS II EFFERVESCENT PACKET (SODIUM BICARB./CITRIC ACID/SIMETHICONE) As Ordered ONE; +E-Z-HD 98% w/w 340GM SUSP BTL As Ordered ONE; +E-Z-PAQUE 96% w/w SUSP 176GM BTL As Ordered ONE; -NS 1,000 ML IV ONE
--- NOTE | 2018-11-06 08:37 | REP ---
Upper GI Air Contrast with SBFT The procedure was performed by JAMIA Reeder, under the the direct supervision of Dr. Morales. The images were reviewed with Dr. Morales. The video control engineer film shows no organomegaly or pathological masses. The intestinal gas pattern appears normal. The colon demonstrates a fair amount of retained stool. There is an IUD in the pelvis. There are calcifications in the left upper quadrant most likely corresponding to left renal nephrolithiasis. Liquid barium and gas producing crystals were given in the erect position as well as liquid barium in the prone position in order to perform a double contrast upper GI examination. The oral and pharyngeal stages of deglutition were unremarkable. Esophageal transport is efficient and there is no esophagitis, stricture, or mucosal ring noted. There is no hiatal hernia. Gastroesophageal reflux is not demonstrated throughout the course of the exam. The stomach mcelroy are normally outlined. The rugal folds are smooth and regular. There is no gastritis, neoplasm, or ulcer disease noted. The duodenal mcelroy are normally outlined. The mucosal folds are smooth and regular. There is no duodenitis, peptic ulcer disease, or neoplasm noted. The visualized portion of the proximal small bowel appears normal in course and caliber. The barium column was followed through the small bowel to the level of the terminal ileum. Small bowel transit time was approximately 155 minutes. During fluoroscopy gentle palpation shows all loops are freely mobile and pliable. There are no fixed or angulated loops. The small bowel mucosal pattern is normal in course and caliber. There is no transition to set suggest a partial small-bowel obstruction. Spot filming of the terminal ileum shows it to be unremarkable. Impression: 1. Unremarkable upper GI with small bowel follow-through. 1.5 minutes of fluoroscopy time was utilized for this procedure. Some fluoroscopic images are performed with last image hold technology. These images require no additional radiation. Reviewed by JAMIA Fallon 11/05/2018 04:06 P Electronically Signed by Douglas Morales MD 11/06/2018 07:46 A
== END ==
LOC: M RAD 10-23 09:24
PROVIDERS: ATTEND Internal Medicine Gastroenterology
DX: K58.2 Mixed irritable bowel syndrome (principal)

== ENCOUNTER 2019-01-10 21:34 | Emergency (ER) | payer MEDICARE ==
[~2019-01-10] VITALS: Ht 170.2 cm; Wt 59.1 kg
[~2019-01-10 21:34] MED LIST changes: -DULO1CAP2 PO; -DULO1CAP3 PO; +DULO1CAP5 PO; +DULO1CAP6 PO; -E-Z-GAS II EFFERVESCENT PACKET (SODIUM BICARB./CITRIC ACID/SIMETHICONE) As Ordered ONE; -E-Z-HD 98% w/w 340GM SUSP BTL As Ordered ONE; -E-Z-PAQUE 96% w/w SUSP 176GM BTL As Ordered ONE
[2019-01-10] MEDS ORDERED: BUPR300T34 PO (21:48)
[2019-01-10] MEDS ORDERED: HYDR1CAP25 PO (21:48)
[2019-01-10] MEDS ORDERED: NS 1,000 ML IV ONE (22:00)
[2019-01-10 22:13] LABS: BASO # 0.1 10^3/uL (0.0-0.2); BASO % 0.6 % (0.0-1.0); EOS # 0.1 10^3/uL (0.0-0.50); EOS % 1.6 % (0.0-3.0); HEMATOCRIT 36.1 % (36.0-47.0); HEMOGLOBIN 11.9 g/dl (12.0-15.5); LYMPH # 1.7 10^3/uL (1.5-4.5); LYMPH % 18.9 % (24.0-44.0); MEAN CORPUSCULAR HEMOGLOBIN 30.4 pg (27.0-33.0); MEAN CORPUSCULAR VOLUME 92.3 fl (80.0-96.0); MONO # 0.6 10^3/uL (0.0-0.8); MONO % 7.1 % (0.0-5.0); NEUTROPHILS # 6.3 10^3/uL (1.8-7.7); NEUTROPHILS % 71.6 % (36.0-66.0); PLATELET COUNT, AUTOMATED 258 10^3/uL (150-450); RED BLOOD COUNT 3.91 10^6/uL (4.00-5.40); WHITE BLOOD COUNT 8.8 10^3/uL (4.0-10.0)
[2019-01-10 22:35] LABS: HCG, SERUM QUALITATIVE NEGATIVE (NEGATIVE)
[2019-01-10 22:53] LABS: ACETAMINOPHEN LEVEL < 2.0 UG/ML (10.0-30.0); ALT/SGPT 19 U/L (12-78); BILIRUBIN,DIRECT 0.2 MG/DL (0.0-0.2); BILIRUBIN,TOTAL 0.3 MG/DL (0.2-1.0); BLOOD UREA NITROGEN 19 MG/DL (7-18); CALCIUM LEVEL 9.2 MG/DL (8.5-10.1); CARBON DIOXIDE LEVEL 27 MEQ/L (21-32); CHLORIDE LEVEL 108 MEQ/L (98-107); CPK CREATINE PHOSPHOKINASE 292 U/L (26-192); CREATININE FOR GFR 0.94 MG/DL (0.55-1.30); ETHYL ALCOHOL (ETHANOL) < 0.003 % (0.000-0.010); GLOMERULAR FILTRATION RATE > 60.0 (>60); GLUCOSE, FASTING 106 MG/DL (70-100); POTASSIUM SERUM 3.9 MEQ/L (3.5-5.1); SALICYLATE LEVEL < 1.7 MG/DL (5.0-30.0); SODIUM LEVEL 145 MEQ/L (136-145); TOTAL PROTEIN 7.1 GM/DL (6.4-8.2)
[2019-01-11] MEDS ORDERED: NS 1,000 ML IV ONE
[2019-01-11 03:45] VITALS: BP 121/72
--- NOTE | 2019-01-11 08:18 | ECGEPIP ---
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
--- NOTE | 2019-01-11 08:22 | ECGEPIP ---
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
--- NOTE | 2019-01-11 08:27 | ECGEPIP ---
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
== END 2019-01-11 04:02 | disposition home or self-care (01) ==
LOC: M ED 21:34
DX: T43.292A Poisoning by other antidepressants, intentional self-harm, initial encounter (principal); F19.10 Other psychoactive substance abuse, uncomplicated; R00.0 Tachycardia, unspecified; X58.XXXA Exposure to other specified factors, initial encounter; F41.1 Generalized anxiety disorder; F31.9 Bipolar disorder, unspecified; G47.00 Insomnia, unspecified; R45.851 Suicidal ideations; R56.9 Unspecified convulsions; F17.200 Nicotine dependence, unspecified, uncomplicated; Z79.899 Other long term (current) drug therapy
CPT/HCPCS: 36415; 80048; 80076; 82550; 84443; 84703; 85025; 93005; 93041; 94760; 96360; 96361; 99285; G0480

== ENCOUNTER → 2019-03-07 | Outpatient (REF) | payer MEDICARE ==
[~2019-03-07] MED LIST changes: +BUPR300T34 PO; +HYDR1CAP25 PO
== END ==
LOC: M LABDRAW1 11:42
PROVIDERS: ATTEND Psychiatry & Neurology Psychiatry
DX: Z79.899 Other long term (current) drug therapy (principal)

== ENCOUNTER → 2019-05-28 | Outpatient (REF) | payer MEDICARE ==
[~2019-05-28] MED LIST changes: -BUPR300T34 PO; +BUPR300T92 PO; -TRAZ-163 PO; +TRAZ-257 PO
[2019-05-28 13:33] LABS: BASO # 0.1 10^3/uL (0.0-0.2); EOS # 0.2 10^3/uL (0.0-0.5); HEMATOCRIT 42.8 % (36.0-47.0); HEMOGLOBIN 13.2 g/dl (12.0-15.5); LYMPH # 2.3 10^3/uL (1.5-5.0); LYMPH % 46.2 % (24.0-44.0); MEAN CORPUSCULAR HEMOGLOBIN 29.3 pg (27.0-33.0); MEAN CORPUSCULAR HGB CONC 30.8 g/dl (32.0-36.5); MEAN CORPUSCULAR VOLUME 95.1 fl (80.0-96.0); MONO # 0.3 10^3/uL (0.0-0.8); MONO % 6.9 % (0.0-5.0); NEUTROPHILS # 2.1 10^3/uL (1.5-8.5); NEUTROPHILS % 42.9 % (36.0-66.0); PLATELET COUNT, AUTOMATED 267 10^3/uL (150-450); WHITE BLOOD COUNT 4.9 10^3/uL (4.0-10.0)
[2019-05-28 14:00] LABS: ALT/SGPT 17 U/L (12-78); BILIRUBIN,TOTAL 0.3 MG/DL (0.2-1.0); BLOOD UREA NITROGEN 17 MG/DL (7-18); CALCIUM LEVEL 8.7 MG/DL (8.5-10.1); CARBON DIOXIDE LEVEL 24 MEQ/L (21-32); CHLORIDE LEVEL 109 MEQ/L (98-107); CHOLESTEROL LEVEL 252 MG/DL (<200); CREATININE FOR GFR 0.98 MG/DL (0.55-1.30); FREE THYROXINE INDEX 2.7 % (1.3-4.8); GLOMERULAR FILTRATION RATE > 60.0 (>60); GLUCOSE, FASTING 119 MG/DL (70-100); HCG, SERUM QUANTITATIVE < 1.0 MIU/ML; HDL CHOLESTEROL 113 MG/DL (>40); LDL CHOLESTEROL 121 MG/DL (<100); NON-HDL-C 139 MG/DL; POTASSIUM SERUM 4.5 MEQ/L (3.5-5.1); SODIUM LEVEL 142 MEQ/L (136-145); T UPTAKE 34 % (30-39); THYROXINE (T4) 7.9 UG/DL (4.5-12.0); TOTAL PROTEIN 6.6 GM/DL (6.4-8.2); TRIGLYCERIDES LEVEL 88 MG/DL (<150)
[2019-05-28 15:01] LABS: HEMOGLOBIN A1c 5.4 %
== END ==
LOC: M LABDRAW1 12:44
PROVIDERS: ATTEND Internal Medicine
DX: Z00.00 Encounter for general adult medical examination without abnormal findings (principal); N91.2 Amenorrhea, unspecified; R53.82 Chronic fatigue, unspecified; E78.00 Pure hypercholesterolemia, unspecified

== ENCOUNTER → 2020-10-09 | Outpatient (REF) | payer MEDICARE | LOC: M PLALAB 16:55 | PROVIDERS: ATTEND Psychiatry & Neurology Psychiatry | DX: F31.89 Other bipolar disorder (principal); F41.1 Generalized anxiety disorder; F50.01 Anorexia nervosa, restricting type; F10.20 Alcohol dependence, uncomplicated; F14.20 Cocaine dependence, uncomplicated; F11.20 Opioid dependence, uncomplicated; F16.20 Hallucinogen dependence, uncomplicated; Z65.8 Other specified problems related to psychosocial circumstances ==

== ENCOUNTER 2023-07-12 06:05 | Emergency (ER) | payer MEDICARE ==
[~2023-07-12 06:05] MED LIST changes: +OLAN1TAB16 PO; -OLAN5TAB PO
[2023-07-12 07:32] LABS: BASO # 0.1 10^3/uL (0.0-0.2); BASO % 0.6 % (0.0-1.0); EOS % 0.3 % (0.0-3.0); HEMATOCRIT 45.6 % (36.0-47.0); HEMOGLOBIN 15.9 g/dl (12.0-15.5); LYMPH # 2.7 10^3/uL (1.5-5.0); LYMPH % 28.6 % (24.0-44.0); MEAN CORPUSCULAR HEMOGLOBIN 31.7 pg (27.0-33.0); MEAN CORPUSCULAR HGB CONC 34.9 g/dl (32.0-36.5); MONO # 0.5 10^3/uL (0.0-0.8); MONO % 5.6 % (2.0-8.0); NEUTROPHILS # 6.2 10^3/uL (1.5-8.5); NEUTROPHILS % 64.7 % (36.0-66.0); PLATELET COUNT, AUTOMATED 389 10^3/uL (150-450); RED BLOOD COUNT 5.01 10^6/uL (4.00-5.40); WHITE BLOOD COUNT 9.6 10^3/uL (4.0-10.0)
[2023-07-12] MEDS: KETOROLAC 30 MG/ML 1ML VIAL IV ONE (08:07)
[2023-07-12] MEDS: ONDANSETRON 4MG 2ML VIAL IV ONE (08:07)
[2023-07-12] MEDS: GASTROGRAFIN SOLUTION 30ML PO SCH (08:07)
[2023-07-12] MEDS: NS 1,000 ML IV ONE (08:08)
[2023-07-12] MEDS: clonazePAM 1 MG TAB PO ONE (08:52)
[2023-07-12 08:53] LABS: ALBUMIN 3.8 G/DL (3.2-5.2); ALKALINE PHOSPHATASE 64 U/L (46-116); ALT/SGPT 28 U/L (7.0-40); AST/SGOT 23 U/L (<34); BILIRUBIN,DIRECT < 0.1 MG/DL (<0.4); BILIRUBIN,TOTAL 0.3 MG/DL (0.3-1.2); BLOOD UREA NITROGEN 27 MG/DL (9-23); CALCIUM LEVEL 9.3 MG/DL (8.5-10.1); CARBON DIOXIDE LEVEL 22 MMOL/L (20-31); CHLORIDE LEVEL 100 MMOL/L (98-107); CREATININE FOR GFR 0.87 MG/DL (0.55-1.30); GLOMERULAR FILTRATION RATE > 60.0 (>60); GLUCOSE, FASTING 87 MG/DL (60-100); LIPASE 53 U/L (12-53); POTASSIUM SERUM 3.3 MMOL/L (3.5-5.1); SODIUM LEVEL 135 MMOL/L (136-145); TOTAL PROTEIN 6.7 G/DL (5.7-8.2)
[2023-07-12] MEDS ORDERED: ACETAMINOPHEN 500 MG TAB PO ONE (09:40)
[2023-07-12 09:50] LABS: HCG, SERUM QUALITATIVE NEGATIVE (NEGATIVE)
[2023-07-12] MEDS: ACETAMINOPHEN *IV* 1,000 MG in IV 1 EA IV ONE (09:50)
[2023-07-12] MEDS ORDERED: ISOVUE-370 76% 100ML VIAL As Ordered ONE (09:53)
[2023-07-12 10:17] LABS: MAGNESIUM LEVEL 2.1 MG/DL (1.8-2.4)
[2023-07-12 10:39] LABS: AMPHETAMINES LEVEL URINE NEGATIVE (NEGATIVE)
[2023-07-12 10:40] LABS: BARBITURATES URINE NEGATIVE (NEGATIVE); CANNABINOIDS URINE NEGATIVE (NEGATIVE); COCAINE METABOLITE URINE NEGATIVE (NEGATIVE); METHADONE URINE NEGATIVE (NEGATIVE); OPIATES URINE NEGATIVE (NEGATIVE); PHENCYCLIDINE URINE NEGATIVE (NEGATIVE)
[2023-07-12 10:43] LABS: BENZODIAZEPINES URINE POSITIVE (NEGATIVE)
[2023-07-12] MEDS ORDERED: AMOX875T2 PO (13:31)
[2023-07-12] MEDS: POTASSIUM CHLORIDE 10MEQ SR TABLET PO ONE (13:40)
[2023-07-12 13:43] VITALS: BP 102/66; TEMP 96.4; O2SAT 100
== END 2023-07-12 13:43 | disposition home or self-care (01) ==
LOC: M ED 06:05
DX: A09 Infectious gastroenteritis and colitis, unspecified (principal); K76.0 Fatty (change of) liver, not elsewhere classified; R56.9 Unspecified convulsions; R50.9 Fever, unspecified; F41.1 Generalized anxiety disorder; F31.9 Bipolar disorder, unspecified; Z79.899 Other long term (current) drug therapy
CPT/HCPCS: 74177; 80048; 80076; 80307; 81001; 83690; 83735; 84703; 85025; 87486; 87507; 87581; 87633; 87798; 93041; 96374; 96375; 99284; J0131; J1885; J2405; Q9963; Q9967

== ENCOUNTER 2023-09-18 11:22 | Day surgery (SDC) | payer MEDICARE ==
[~2023-09-18] VITALS: Ht 170.2 cm; Wt 49.9 kg
[~2023-09-18 11:22] MED LIST changes: +AMOX875T2 PO; +BUPR-597 PO; -BUPR300T92 PO; +CARB400T11 PO; -CARB400T4 PO; +CLON1TAB8 PO; +LAMO100T3 PO; +LAMO200T3 PO
[2023-09-18] MEDS: NS 1,000 ML IV ONE (12:55)
[2023-09-18] MEDS ORDERED: propofoL 200 MG/20 ML VIAL As Ordered ONE (14:13)
[2023-09-18 14:56] VITALS: TEMP 97.1
[2023-09-18 15:41] VITALS: BP 103/61; O2SAT 100
== END 2023-09-18 15:43 | disposition home or self-care (01) ==
LOC: M OPP 11:22
PROVIDERS: ATTEND Internal Medicine Gastroenterology
DX: R19.4 Change in bowel habit (principal); K64.0 First degree hemorrhoids; R19.7 Diarrhea, unspecified; Z79.899 Other long term (current) drug therapy; F17.290 Nicotine dependence, other tobacco product, uncomplicated; F31.9 Bipolar disorder, unspecified

== ENCOUNTER → 2023-11-23 | Outpatient (CLI) | payer MEDICARE | LOC: M RAD 07:24 | PROVIDERS: ATTEND Internal Medicine Gastroenterology | DX: R10.13 Epigastric pain (principal); R68.81 Early satiety; R10.9 Unspecified abdominal pain | CPT/HCPCS: 78264; A9541 ==

== ENCOUNTER 2024-03-05 06:55 | Emergency (ER) | payer MEDICARE ==
[~2024-03-05] VITALS: Ht 170.2 cm; Wt 51.7 kg
[2024-03-05] MEDS: METOCLOPRAMIDE INJ 10MG/2ML VIAL IV ONE (08:18)
[2024-03-05 08:20] LABS: BASO # 0.1 10^3/uL (0.0-0.2); BASO % 0.7 % (0.0-1.0); EOS # 0.1 10^3/uL (0.0-0.5); EOS % 1.5 % (0.0-3.0); HEMATOCRIT 36.8 % (36.0-47.0); HEMOGLOBIN 12.1 g/dl (12.0-15.5); LYMPH # 1.5 10^3/uL (1.5-5.0); MEAN CORPUSCULAR HEMOGLOBIN 30.9 pg (27.0-33.0); MEAN CORPUSCULAR HGB CONC 32.9 g/dl (32.0-36.5); MEAN CORPUSCULAR VOLUME 93.9 fl (80.0-96.0); MONO # 0.5 10^3/uL (0.0-0.8); MONO % 6.3 % (2.0-8.0); NEUTROPHILS # 5.3 10^3/uL (1.5-8.5); NEUTROPHILS % 71.2 % (36.0-66.0); PLATELET COUNT, AUTOMATED 299 10^3/uL (150-450); RED BLOOD COUNT 3.92 10^6/uL (4.00-5.40); WHITE BLOOD COUNT 7.4 10^3/uL (4.0-10.0)
[2024-03-05] MEDS: KCL 10MEQ/100ML SWI (KRUN) 10 MEQ in IV 1 EA IV ONE ×2 (08:35→12:12)
[2024-03-05] MEDS: POTASSIUM CHLORIDE 10MEQ SR TABLET PO ONE (08:36)
[2024-03-05 08:40] LABS: LIPASE 68 U/L (12-53)
[2024-03-05 08:42] LABS: ALBUMIN 2.9 G/DL (3.2-5.2); ALKALINE PHOSPHATASE 79 U/L (46-116); ALT/SGPT 26 U/L (7.0-40); AST/SGOT 16 U/L (<34); BILIRUBIN,DIRECT < 0.1 MG/DL (<0.4); BILIRUBIN,TOTAL < 0.2 MG/DL (0.3-1.2); TOTAL PROTEIN 5.5 G/DL (5.7-8.2)
[2024-03-05 08:57] LABS: HCG, SERUM QUALITATIVE NEGATIVE (NEGATIVE)
[2024-03-05] MEDS ORDERED: ISOVUE-370 76% 100ML VIAL As Ordered ONE (09:03)
[2024-03-05] MEDS: NS 1,000 ML IV ONE (09:05)
[2024-03-05] MEDS: KETOROLAC 30 MG/ML 1ML VIAL IV ONE (10:10)
[2024-03-05] MEDS: DICYCLOMINE 10 MG CAP PO ONE (10:57)
[2024-03-05] MEDS: ACETAMINOPHEN *IV* 1,000 MG in IV 1 EA IV ONE (10:57)
[2024-03-05 13:37] VITALS: BP 89/59; TEMP 97.5; O2SAT 100
== END 2024-03-05 13:50 | disposition home or self-care (01) ==
LOC: M ED 06:55
DX: R10.9 Unspecified abdominal pain (principal); E87.6 Hypokalemia; F41.1 Generalized anxiety disorder; F31.9 Bipolar disorder, unspecified; K21.9 Gastro-esophageal reflux disease without esophagitis; N28.89 Other specified disorders of kidney and ureter; Z79.899 Other long term (current) drug therapy
CPT/HCPCS: 74177; 80047; 80076; 81001; 83605; 83690; 84703; 85025; 93005; 93041; 96365; 96366; 96375; 99284; J0131; J1885; J2765; Q9967

== ENCOUNTER 2024-11-16 08:24 | Emergency (ER) | payer MEDICARE ==
[~2024-11-16 08:24] MED LIST changes: -BUPR-597 PO; +BUPR-766 PO; +LAMO-18 PO; -LAMO25TA4 PO
[2024-11-16] MEDS: NS (Normal Saline) 0.9% 1,000 ML IV ONE (08:50)
[2024-11-16 09:04] LABS: BASO # 0.1 10^3/uL (0.0-0.2); BASO % 0.5 % (0.0-1.0); EOS # 0.0 10^3/uL (0.0-0.5); EOS % 0.3 % (0.0-3.0); LYMPH # 1.7 10^3/uL (1.5-5.0); LYMPH % 14.9 % (24.0-44.0); MONO # 0.6 10^3/uL (0.0-0.8); MONO % 5.3 % (2.0-8.0); NEUTROPHILS # 9.1 10^3/uL (1.5-8.5); NEUTROPHILS % 78.6 % (36.0-66.0); PLATELET COUNT, AUTOMATED 367 10^3/uL (150-450)
[2024-11-16 09:12] LABS: INR 0.85
[2024-11-16] MEDS ORDERED: PROM25TA12 PO (10:25)
[2024-11-16] MEDS ORDERED: OLAN1TAB20 PO (10:25)
[2024-11-16] MEDS ORDERED: OLAN7.5T38 PO (10:25)
[2024-11-16] MEDS ORDERED: DICY-61 PO (10:25)
[2024-11-16] MEDS ORDERED: HYDR50TA30 PO (10:25)
[2024-11-16] MEDS ORDERED: HOME MED LIST COMPLETE! XX SCH (10:30)
[2024-11-16] MEDS: LORazepam 0.5 MG TAB PO STA (11:35)
[2024-11-16 13:45] VITALS: BP 102/63; TEMP 98.4; O2SAT 100
== END 2024-11-16 14:18 | disposition home or self-care (01) ==
LOC: M ED 08:24 → EDBD 08:24 → M ED 14:18
DX: K62.3 Rectal prolapse (principal); Z79.899 Other long term (current) drug therapy
CPT/HCPCS: 80047; 83605; 85025; 85610; 86850; 86900; 86901; 93041; 96361; 96374; 99285; J3010